=== PATIENT | female | born 1950 | race Caucasian/White ===

== ENCOUNTER 2018-02-14 12:25 | Emergency (ER) | payer OTHER ==
[2018-02-14 12:31] VITALS: BP 164/74; PULSE 90; TEMP 98.6; BMI 31.7
--- NOTE | 2018-02-14 12:48 | PDOC ---
History of Present Illness - General Chief Complaint: Injury Stated Complaint: LT ARM INJURY Time Seen by Provider: 02/14/18 12:47 History Source: Patient Exam Limitations: No Limitations - History of Present Illness Initial Comments: CHIEF COMPLAINT: 67 y/o female c/o left shoulder pain since last night that was worse with sleeping HISTORY OF PRESENT ILLNESS: Patient admits she was lifting her 20lb grandson yesterday a lot. Last night she developed left shoulder pain and it radiates into her neck. She cannot put her shirt on or clasp her bra with her left hand. She denies fall, trauma, CP, SOB, numbness/tingling in upper extremity. Vital signs on arrival are within normal limits. REVIEW OF SYSTEMS: GENERAL/CONSTITUTIONAL: No fever/chills. No weakness. No weight change. MUSCULOSKELETAL: +left shoulder pain. No neck or back pain. SKIN: No rash or easy bruising. NEUROLOGIC: No headache, vertigo, loss of consciousness, or loss of sensation. PHYSICAL EXAM: VITAL_SIGNS: within normal limits GENERAL_APPEARANCE: alert, cooperative, no obvious discomfort. NECK: No midline cervical spine TTP or step offs. MENTAL_STATUS: speech clear, oriented X 3, responds appropriately to questions. NEURO: motor intact and sensory intact in injured extremity. EXTREMITIES: Pain with palpation of left AC joint. Patient cannot abduct left arm > 90 degrees. Patient cannot put left hand behind back. TTP of left trapezius muscle. SKIN: warm, dry, good color. Past History - Past Medical History Allergies/Adverse Reactions: Allergies Allergy/AdvReac Type Severity Reaction Status Date / Time No Known Allergies Allergy Verified 02/14/18 12:31 Home Medications: Ambulatory Orders Meclizine HCl [Antivert] 12.5 mg PO TID #90 tablet 06/19/12 Olmesartan/Hydrochlorothiazide [Benicar Hct 20-12.5 mg Tablet] 1 each PO DAILY 06/19/12 levoFLOXacin [Levaquin] 500 mg PO DAILY #7 tablet 06/19/12 Docusate Sodium [Colace -] 100 mg PO DAILY #30 capsule 11/11/15 Oxycodone HCl/Acetaminophen [Percocet 5-325 mg Tablet] 1 tab PO Q4H #20 tablet MDD 4 11/11/15 Ibuprofen [Motrin -] 600 mg PO TID #21 tablet 11/12/15 Ondansetron [Zofran Odt -] 4 mg SL TID PRN #21 od.tablet 11/12/15 Oxycodone HCl/Acetaminophen [Percocet 5-325 mg Tablet] 1 - 2 tab PO Q6H #24 tab MDD 8 tabs 11/12/15 Cardiac Disorders: Yes (RI "over 15 years ago") COPD: No GI Disorders: Yes (acid reflux) HTN: Yes - Immunization History Immunization Up to Date: Yes - Suicide/Smoking/Psychosocial Hx Smoking Status: No Smoking History: Never smoked Have you smoked in the past 12 months: No Number of Cigarettes Smoked Daily: 0 Hx Alcohol Use: No Drug/Substance Use Hx: No Substance Use Type: None *Physical Exam - Vital Signs Last Vital Signs Temp Pulse Resp BP Pulse Ox 98.6 F 90 20 164/74 96 02/14/18 12:27 02/14/18 12:27 02/14/18 12:27 02/14/18 12:27 02/14/18 12:27 Medical Decision Making - Medical Decision Making A/P: 67 y/o female with left rotator cuff strain. Plan is as follows: 1. IM toradol Will discharge to home with instructions to take ibuprofen every 6 hours with food for pain, alternate between ice and heat and walk arm up a wall hourly to prevent frozen shoulder. Suggested she f/u with Dr. Art next week if no improvement in symptoms. The patient verbalizes understanding of all instructions, has no further questions and is awaiting discharge. *DC/Admit/Observation/Transfer Diagnosis at time of Disposition: Rotator cuff (capsule) sprain Qualifiers: Encounter type: initial encounter Laterality: left Qualified Code(s): S43.422A - Sprain of left rotator cuff capsule, initial encounter - Discharge Dispostion Disposition: HOME Condition at time of disposition: Good - Referrals Referrals: Wiliam Gibbons [Primary Care Provider] - Taiwo Art MD [Staff Physician] - (Call Friday if no improvement) - Patient Instructions Printed Discharge Instructions: DI for Rotator Cuff Injury Additional Instructions: Discharge Instructions: -You have a rotator cuff strain -Take 600mg of Ibuprofen every 6 hours with food for pain -Alternate between ice and heating pad to affected area -Walk arm up a wall hourly to prevent frozen shoulder -No heavy lifting -If no improvement by next week, please call Dr. Art for a follow up appointment Instrucciones de descarga: -Tienes pinky distensin del manguito rotador. -[place] 600 mg de ibuprofeno cada 6 horas con alimentos para el dolor -Alternar entre el hielo y la almohadilla trmica al crispin afectada. - Camina vinayak pinky pared cada hora para evitar el hombro congelado. -No levantar objetos pesados -Si no hay mejora para la prxima semana, llame al Dr. Art para pinky isabelle de seguimiento - Post Discharge Activity
[2018-02-14] MEDS ORDERED: KETOROLAC TROMETHAMINE 60 MG/2 ML VIAL IM ONE (13:02)
[2018-02-14] MEDS ORDERED: KETOROLAC TROMETHAMINE 60 MG/2 ML VIAL ONE (13:05)
== END 2018-02-14 13:22 | disposition home or self-care (01) ==
LOC: JERFT 12:25
PROC: 3E0233Z Introduction of Anti-inflammatory into Muscle, Percutaneous Approach (ICD-10-PCS; principal; 2018-02-14)
DX: S43.422A Sprain of left rotator cuff capsule, initial encounter (principal); X50.0XXA Overexertion from strenuous movement or load, initial encounter; Y93.F2 Activity, caregiving, lifting; Y92.038 Other place in apartment as the place of occurrence of the external cause; Y99.8 Other external cause status
CPT/HCPCS: 96372; 99281-25

== ENCOUNTER 2020-06-12 02:03 | Inpatient (IN) | payer OTHER ==
[2020-06-12 02:06] VITALS: BMI 28.1
[2020-06-12] MEDS ORDERED: HYDROCHLOROTHIAZIDE 25 MG TABLET (FP) PO ONE (02:23)
[2020-06-12] MEDS ORDERED: VALSARTAN 40 MG TABLET PO ONE (02:23)
[2020-06-12] MEDS ORDERED: amLODIPine BESYLATE 5 MG TABLET (FP) PO ONE (02:24)
[2020-06-12] MEDS ORDERED: VALSARTAN 80 MG TABLET ONE (02:29)
[2020-06-12] MEDS ORDERED: HYDROCHLOROTHIAZIDE 25 MG TABLET (FP) ONE (02:29)
[2020-06-12] MEDS ORDERED: amLODIPine BESYLATE 5 MG TABLET (FP) ONE (02:29)
[2020-06-12 02:51] LABS: BASO % 0.8 % (0-2.0); EOS % 2.1 % (0-4.5); HEMATOCRIT 35.8 % (32.4-45.2); HEMOGLOBIN 11.8 GM/dL (10.7-15.3); LYMPH % 22.8 % (8-40); MCH 28.8 pg (25.7-33.7); MCHC 32.9 g/dl (32.0-36.0); MEAN CELL VOLUME 87.6 fl (80-96); MONO % 6.3 % (3.8-10.2); PLATELET COUNT 352 K/MM3 (134-434); RBC 4.09 M/mm3 (3.60-5.2); RDW 14.5 % (11.6-15.6); WHITE BLOOD COUNT 11.8 K/mm3 (4.0-10.0)
[2020-06-12 03:08] LABS: POTASSIUM 4.2 mmol/L (3.5-5.1)
[2020-06-12 03:10] LABS: ALBUMIN 3.5 g/dl (3.4-5.0); BLOOD UREA NITROGEN 18.9 mg/dL (7-18); CALCIUM 8.8 mg/dL (8.5-10.1)
[2020-06-12 03:14] LABS: CREATININE 0.9 mg/dL (0.55-1.3)
[2020-06-12 03:15] LABS: BILIRUBIN,TOTAL 0.4 mg/dL (0.2-1)
[2020-06-12] MEDS ORDERED: ASPIRIN 81 MG CHEWABLE TABLETS PO ONE ×2 (03:26→05:29)
[2020-06-12] MEDS ORDERED: ENOXAPARIN NA (PORCINE) 60 MG/0.6 ML DISP.SYRIN SQ ONE ×2 (03:30→03:31)
[2020-06-12] MEDS ORDERED: ASPIRIN 81 MG CHEWABLE TABLETS ONE (03:31)
[2020-06-12] MEDS ORDERED: amLODIPine BESYLATE 2.5 MG TABLET (FP) PO ONE (05:00)
[2020-06-12 07:34] LABS: CALCIUM 9.2 mg/dL (8.5-10.1)
[2020-06-12 07:35] LABS: ALBUMIN 3.4 g/dl (3.4-5.0); BLOOD UREA NITROGEN 18.2 mg/dL (7-18); MAGNESIUM 2.2 mg/dL (1.8-2.4)
[2020-06-12 07:36] LABS: BASO % 0.2 % (0-2.0); EOS % 2.1 % (0-4.5); HEMATOCRIT 35.9 % (32.4-45.2); HEMOGLOBIN 11.9 GM/dL (10.7-15.3); LYMPH % 21.9 % (8-40); MCH 28.8 pg (25.7-33.7); MEAN CELL VOLUME 87.3 fl (80-96); MEAN PLT VOLUME 8.6 fl (7.5-11.1); MONO % 6.6 % (3.8-10.2); NEUT % 69.2 % (42.8-82.8); PLATELET COUNT 313 K/MM3 (134-434); RBC 4.12 M/mm3 (3.60-5.2); RDW 14.4 % (11.6-15.6); WHITE BLOOD COUNT 11.1 K/mm3 (4.0-10.0)
[2020-06-12 07:36] LABS: EPI CELLS 17 /uL (0-25.1); HYALINE CASTS 0 /uL (0-3.1); URINE APPEARANCE CLEAR; URINE BACTERIA 290 /uL (0-1359); URINE BILIRUBIN NEGATIVE (NEGATIVE); URINE COLOR YELLOW; URINE GLUCOSE (UA) NEGATIVE (NEGATIVE); URINE KETONE NEGATIVE (NEGATIVE); URINE LEUK ESTERASE TRACE (NEGATIVE); URINE NITRITE NEGATIVE (NEGATIVE); URINE PROTEIN NEGATIVE (NEGATIVE); URINE RBC 3 /uL (0-23.9); URINE WBC 26 /uL (0-25.8)
[2020-06-12 07:38] LABS: CREATININE 0.9 mg/dL (0.55-1.3)
[2020-06-12 07:39] LABS: BILIRUBIN,TOTAL 0.4 mg/dL (0.2-1); INR 1.03 (0.83-1.09); PROTHROMBIN TIME (PATIENT) 12.6 SEC (9.7-13.0); TOT PROT 7.5 g/dl (6.4-8.2)
[2020-06-12 07:42] LABS: ACTIVATED PTT 31.4 SECONDS (25.2-36.5)
[2020-06-12] MEDS: PANTOPRAZOLE 40 MG TABLET PO SCH (10:20)
[2020-06-12] MEDS: metoPROLOL SUCCINATE 25 MG TAB.SR.24H (FP) PO SCH ×2 (10:20→22:22)
[2020-06-12] MEDS: HYDROCHLOROTHIAZIDE 12.5 MG CAPSULE (FP) PO SCH (10:20)
[2020-06-12] MEDS: ASPIRIN 81 MG CHEWABLE TABLETS PO SCH (10:20)
[2020-06-12] MEDS: amLODIPine BESYLATE 5 MG TABLET (FP) PO SCH (10:20)
[2020-06-12] MEDS: ENOXAPARIN NA (PORCINE) 40 MG/0.4 ML DISP.SYRIN SQ SCH (10:30)
[2020-06-12] MEDS: SULFAMETHOXAZOLE/TRIMETHOPRIM 800MG/160MG D.S. TABLET PO SCH (22:22)
[2020-06-12] MEDS: ASCORBIC ACID 500 MG TABLET (FP) PO SCH (22:22)
[2020-06-13] MEDS ORDERED: ZINC SULFATE 220 MG CAPSULE (FP) PO SCH (10:00)
[2020-06-13] MEDS ORDERED: VALSARTAN 40 MG TABLET PO SCH (10:00)
[2020-06-13] MEDS ORDERED: CHOLECALCIFEROL (VIT D3) 1,000 UNIT (25 MCG) TABLET PO SCH (10:00)
[2020-06-13 10:20] LABS: BASO % 0.6 % (0-2.0); EOS % 1.8 % (0-4.5); HEMATOCRIT 37.6 % (32.4-45.2); HEMOGLOBIN 12.6 GM/dL (10.7-15.3); LYMPH % 21.6 % (8-40); MCH 29.6 pg (25.7-33.7); MCHC 33.5 g/dl (32.0-36.0); MEAN CELL VOLUME 88.4 fl (80-96); MONO % 7.4 % (3.8-10.2); NEUT % 68.6 % (42.8-82.8); PLATELET COUNT 297 K/MM3 (134-434); RBC 4.25 M/mm3 (3.60-5.2); RDW 14.4 % (11.6-15.6); WHITE BLOOD COUNT 9.3 K/mm3 (4.0-10.0)
[2020-06-13 11:11] LABS: ALBUMIN 3.4 g/dl (3.4-5.0); BLOOD UREA NITROGEN 18.9 mg/dL (7-18); CALCIUM 9.3 mg/dL (8.5-10.1); MAGNESIUM 2.4 mg/dL (1.8-2.4)
[2020-06-13 11:15] LABS: CREATININE 1.2 mg/dL (0.55-1.3)
[2020-06-13 11:16] LABS: BILIRUBIN,TOTAL 0.6 mg/dL (0.2-1)
[2020-06-13 11:17] LABS: TOT PROT 7.7 g/dl (6.4-8.2)
[2020-06-13] MEDS: ASPIRIN 81 MG CHEWABLE TABLETS PO SCH (11:31)
[2020-06-13] MEDS: metoPROLOL SUCCINATE 25 MG TAB.SR.24H (FP) PO SCH (11:31)
[2020-06-13] MEDS: ENOXAPARIN NA (PORCINE) 40 MG/0.4 ML DISP.SYRIN SQ SCH (11:31)
[2020-06-13] MEDS: SULFAMETHOXAZOLE/TRIMETHOPRIM 800MG/160MG D.S. TABLET PO SCH (11:31)
[2020-06-13] MEDS: amLODIPine BESYLATE 5 MG TABLET (FP) PO SCH (11:31)
[2020-06-13] MEDS: PANTOPRAZOLE 40 MG TABLET PO SCH (11:32)
[2020-06-13] MEDS: HYDROCHLOROTHIAZIDE 12.5 MG CAPSULE (FP) PO SCH (11:32)
[2020-06-13] MEDS: ASCORBIC ACID 500 MG TABLET (FP) PO SCH (11:32)
[2020-06-13 14:58] VITALS: BP 119/65; PULSE 81; TEMP 99
== END 2020-06-13 17:56 | disposition home or self-care (01) | DRG 198 ==
LOC: JER 02:03 → JERBED 03:22 → J4S 04:33
PROVIDERS: ADMIT Internal Medicine; ATTEND Nurse Practitioner Acute Care
DX: I24.8 Other forms of acute ischemic heart disease (principal); I10 Essential (primary) hypertension; I25.2 Old myocardial infarction; I16.0 Hypertensive urgency; N39.0 Urinary tract infection, site not specified; D72.829 Elevated white blood cell count, unspecified; U07.1 COVID-19; K21.9 Gastro-esophageal reflux disease without esophagitis; I45.10 Unspecified right bundle-branch block; R00.0 Tachycardia, unspecified
CPT/HCPCS: 36415; 71045-TC-FY; 80053; 80061; 81003; 82550; 82553; 82728; 83615; 83721; 83735; 84443; 84484; 85025; 85379; 85610; 85730; 86140; 86769; 93005; 93010; 93306-TC; 99285-25; C9803; U0003

== ENCOUNTER 2022-02-17 05:45 | Emergency (ER) | payer OTHER ==
[2022-02-17 06:06] VITALS: BMI 31.0
[2022-02-17] MEDS ORDERED: ACETAMINOPHEN 1000 MG/100 ML BAG IVPB ONE (06:09)
[2022-02-17] MEDS ORDERED: LABETALOL HCL 5 MG/1 ML (100MG/20 ML VIAL) IVPUSH ONE (06:11)
[2022-02-17] MEDS ORDERED: LABETALOL HCL 5 MG/1 ML (100MG/20 ML VIAL) ONE (06:12)
[2022-02-17] MEDS ORDERED: ONDANSETRON 4 MG/2 ML VIAL IVPUSH ONE (06:14)
[2022-02-17] MEDS ORDERED: ONDANSETRON 4 MG/2 ML VIAL ONE (06:14)
[2022-02-17 06:17] LABS: EOS % 2.5 % (0-4.5); HEMATOCRIT 37.3 % (32.4-45.2); HEMOGLOBIN 12.1 GM/dL (10.7-15.3); LYMPH % 23.7 % (8-40); MCH 27.6 pg (25.7-33.7); MCHC 32.5 g/dl (32.0-36.0); MEAN CELL VOLUME 84.7 fl (80-96); MEAN PLT VOLUME 8.5 fl (7.5-11.1); MONO % 5.4 % (3.8-10.2); NEUT % 67.4 % (42.8-82.8); PLATELET COUNT 367 10^3/uL (134-434); RDW 14.2 % (11.6-15.6); WHITE BLOOD COUNT 12.7 K/mm3 (4.0-10.0)
[2022-02-17] MEDS ORDERED: NITROGLYCERIN 2% OINTMENT - 1GM PACKET TD ONE ×2 (06:19→06:20)
[2022-02-17 06:50] LABS: CHLORIDE 108 mmol/L (98-107); SODIUM 141 mmol/L (136-145)
[2022-02-17] MEDS ORDERED: morphine CARPU-JECT 2 MG/1 ML DISP.SYRIN IVPUSH ONE (06:51)
[2022-02-17 06:52] LABS: CALCIUM 9.3 mg/dL (8.5-10.1)
[2022-02-17 06:54] LABS: ALBUMIN 3.3 g/dl (3.4-5.0); ANION GAP 8 MMOL/L (8-16); BLOOD UREA NITROGEN 22.8 mg/dL (7-18); CO2 25 mmol/L (21-32); GLUCOSE,RANDOM 104 mg/dL (74-106); MAGNESIUM 2.1 mg/dL (1.8-2.4)
[2022-02-17 06:55] LABS: INR 0.94 (0.83-1.09); PROTHROMBIN TIME (PATIENT) 10.8 SEC (9.7-13.0)
[2022-02-17 06:56] LABS: CREATININE 1.1 mg/dL (0.55-1.3); SGOT/AST 30 U/L (15-37); SGPT/ALT 23 U/L (13-61)
[2022-02-17 06:58] LABS: ACTIVATED PTT 26.2 SECONDS (25.2-36.5); BILIRUBIN,TOTAL 0.3 mg/dL (0.2-1); TOT PROT 7.9 g/dl (6.4-8.2)
[2022-02-17 07:00] LABS: ALK PHOS 110 U/L (45-117)
[2022-02-17] MEDS ORDERED: ACETAMINOPHEN INJECTION 100 ML IVPB ONE (07:13)
[2022-02-17] MEDS ORDERED: ASPIRIN 81 MG CHEWABLE TABLETS PO ONE ×2 (07:18→08:32)
[2022-02-17] MEDS ORDERED: morphine CARPU-JECT 4 MG/1 ML DISP.SYRIN IVPUSH ONE (07:51)
[2022-02-17] MEDS ORDERED: ASPIRIN 81 MG CHEWABLE TABLETS ONE (08:34)
[2022-02-17] MEDS ORDERED: ATORVASTATIN CA 80 MG TABLET (FP) PO ONE (08:42)
[2022-02-17] MEDS ORDERED: HEPARIN NA (PORCINE) 5,000 UNITS/ML 1ML VIAL IVPUSH ONE (09:01)
[2022-02-17 09:08] VITALS: BP 133/94; PULSE 70; RESP 16
[2022-02-17] MEDS ORDERED: ATORVASTATIN CA 80 MG TABLET (FP) ONE (09:10)
[2022-02-17] MEDS ORDERED: HEPARIN NA (PORCINE) 5,000 UNITS/ML 1ML VIAL ONE (09:18)
[2022-02-17 09:42] VITALS: TEMP 97.3
== END 2022-02-17 09:43 | disposition short-term general hospital (02) ==
LOC: JER 05:45
PROC: 3E033NZ Introduction of Analgesics, Hypnotics, Sedatives into Peripheral Vein, Percutaneous Approach (ICD-10-PCS; principal; 2022-02-17)
PROC: 3E033GC Introduction of Other Therapeutic Substance into Peripheral Vein, Percutaneous Approach (ICD-10-PCS; 2022-02-17)
DX: I21.3 ST elevation (STEMI) myocardial infarction of unspecified site (principal)
CPT/HCPCS: 36415; 70450-TC; 71045-TC-FY; 71275-TC; 74174-TC; 80053; 83735; 84484; 85025; 85610; 85730; 93005; 93010; 99285-25; C9803-CS; J1644; Q9967; U0003; U0005